=== PATIENT | female | born 1985 | race Caucasian/White ===

== ENCOUNTER 2016-07-16 02:00 | Inpatient (IN) | payer MEDICAID ==
[~2016-07-16] VITALS: Ht 157.5 cm; Wt 85.4 kg
[2016-07-16] VITALS (14 sets, daily range): BP systolic 114–181; BP diastolic 64–101; PULSE 71–95; RESP 17–19; Ht 157.5 cm; Wt 85.4 kg
[2016-07-16] MEDS ORDERED: PRENAT PO (02:15)
[2016-07-16] MEDS ORDERED: LACTATED RINGER'S 1,000 ML IV SCH (02:19)
--- NOTE | 2016-07-16 02:21 | TRIAGE ---
OB Triage Datetime Report Generated by CPN: 07/16/2016 02:21 Datetime: 07/16/2016 02:16 Time of Arrival: 07/16/2016 01:50 EGA: 38.4 Arrived By: Wheelchair Arrived From: Home Chief Complaint: w/ c/o ucs. No PNR available Movement: Present Contractions: Regular Time Contractions Began: 07/15/2016 23:30 Contractions: q3 Rupture of Membranes: Denies Vaginal Bleeding: Normal Show Vaginal Discharge: Present Recent Sexual Intercouse: Denies Abdominal Trauma: Not Applicable Patient Complaints: Contractions Time Provider Notified: 07/16/2016 02:15 Provider Notified: Dr Will Datetime: 07/16/2016 02:12 Membrane Status: Ruptured Datetime: 07/16/2016 02:06 Stage of : OB Triage Maternal Assessment Level of Consciousness: Fully Conscious DTR's/Clonus: DTRs 2+; No Clonus Headache: Denies Blurred Vision: No Nausea/Vomiting: Denies RUQ Epigastric Pain: Denies Facial Edema: None Labor Evaluation Frequency: placed Monitor Mode: External Heart Rate Monitor Mode: External US Comments: [id number] Pain Assessment Pain Scale: 8 Pain Presence: Intermittent Pain Type: Contraction Pain Location: Abdomen Vaginal Exam Dilatation (cms): 5.0 Effacement (%): 80 Station: -2 Exam By: Marv Casiano Vaginal Bleeding: Normal Show Cervix, Consistency: Soft Cervix, Position: Midposition Presentation 'A': Cephalic
[2016-07-16] MEDS ORDERED: BUTORPHANOL 2 MG INJ IV PRN (02:30)
[2016-07-16] MEDS ORDERED: MISOPROSTOL 200 MCG TAB PR PRN ×2 (02:30→06:30)
[2016-07-16] MEDS ORDERED: LIDOCAINE 1% (MPF) 30 ML INJ INJ PRN (02:30)
[2016-07-16] MEDS ORDERED: MAGNESIUM SULFATE 4 GM/100 ML 100 ML IVPB ONE (02:30)
[2016-07-16] MEDS ORDERED: IBUPROFEN 600 MG TAB PO PRN (02:30)
[2016-07-16] MEDS ORDERED: METHYLERGONOVINE 0.2 MG INJ IM PRN (02:30)
[2016-07-16] MEDS ORDERED: OXYTOCIN 30 UNITS/LR 500 ML IV PRN ×2 (02:30→06:30)
[2016-07-16] MEDS ORDERED: CARBOPROST 250 MCG INJ IM PRN ×2 (02:30→06:30)
[2016-07-16] MEDS ORDERED: AMPICILLIN 2 GM/NS (PMX) 100 ML IV ONE (02:30)
[2016-07-16] MEDS ORDERED: OXYTOCIN 30 UNITS/LR 500 ML IV SCH ×2 (02:30)
[2016-07-16 02:57] LABS: BASOPHILS % 0.4 % (0.0-2.0); EOSINOPHILS % 0.3 % (0.0-7.0); HEMATOCRIT 33.1 % (37.0-47.0); HEMOGLOBIN 11.1 g/dl (12.0-16.0); LYMPHOCYTES # 2.1 10^3/ul (0.8-2.9); LYMPHOCYTES % 19.3 % (15.0-51.0); MEAN CORPUSCULAR HEMOGLOBIN 27.8 pg (29.0-33.0); MEAN CORPUSCULAR HGB CONC 33.6 g/dl (32.0-37.0); MEAN CORPUSCULAR VOLUME 82.8 fl (82.0-101.0); MEAN PLATELET VOLUME 9.9 fl (7.4-10.4); MONOCYTE # 0.7 10^3/ul (0.3-0.9); MONOCYTES % 6.1 % (0.0-11.0); NEUTROPHIL # 8.2 10^3/ul (1.6-7.5); NEUTROPHILS % 73.9 % (39.0-77.0); PLATELET COUNT 224 10^3/UL (140-440); RED CELL DISTRIBUTION WIDTH 13.8 % (11.5-14.5); UNCORRECTED WBC 11.1 10^3/ul (4.8-10.8); WHITE BLOOD COUNT 11.1 10^3/ul (4.8-10.8)
[2016-07-16 02:58] LABS: CONDITION 1; INR 0.92; PROTIME 12.4 Sec (12.2-14.2)
[2016-07-16 02:59] LABS: PARTIAL THROMBOPLASTIN TIME 26.2 Sec (25.0-35.0)
[2016-07-16] MEDS ORDERED: LACTATED RINGER'S 1,000 ML IV PRN (03:00)
[2016-07-16 03:20] LABS: ALBUMIN 2.7 g/dl (3.3-4.9); CHLORIDE 106 mmol/L (97-110)
[2016-07-16 03:21] LABS: POTASSIUM 4.3 mmol/L (3.5-5.1); SODIUM 138 mmol/L (135-144)
[2016-07-16 03:23] LABS: ANION GAP 14 (8-16); ASPARTATE AMINO TRANSFERASE 23 IU/L (15-46); CARBON DIOXIDE 22 mmol/L (21-31); CREATININE 0.91 mg/dl (0.44-1.00)
[2016-07-16 03:24] LABS: ALANINE AMINOTRANSFERASE 21 IU/L (13-69); ALKALINE PHOSPHATASE 238 IU/L (42-121); BLOOD UREA NITROGEN 17 mg/dl (7-20); CALCIUM 8.7 mg/dl (8.4-10.2); GLUCOSE 85 mg/dl (70-220); TOTAL PROTEIN 5.7 g/dl (6.1-8.1)
[2016-07-16 03:28] LABS: BARBITURATES NEGATIVE (NEGATIVE); BENZODIAZEPINES NEGATIVE (NEGATIVE); CANNABINOIDS NEGATIVE (NEGATIVE); COCAINE NEGATIVE (NEGATIVE); OPIATES NEGATIVE (NEGATIVE)
[2016-07-16] MEDS: MAGNESIUM SULFATE 20 GM/500 ML 500 ML IV SCH ×2 (03:38→13:59)
--- NOTE | 2016-07-16 03:44 | RADRPT ---
PROCEDURE: US OB ESTIMATED WEIGHT. CLINICAL INDICATION: Pain. TECHNIQUE: Multiple sonographic images of the pelvis were obtained. The images were reviewed on a PACS workstation. COMPARISON: No pertinent prior examinations were submitted for comparison. FINDINGS: There is a single live intrauterine gestation. Cardiac activity is present with 136 beats per minut e. There is a vertex presentation. Measurements were made in order to determine age. The results are as follows: BPD =8.8 cm = 35 weeks 5 days HC =31.3 cm = 35 weeks 0 days AC =32 cm = 35 weeks 6 days FL =7 cm = 35 weeks 6 days Estimated gestational age of approximately 35 weeks 4 days. The estimated date of delivery is 08/16/2016. The EFW = 2760 g. 8% This examination was not performed for anatomy. The placenta is fundal and grade II in appearance. There is no evidence for an abruption or placenta previa. IMPRESSION: EFW = 2760 g. 8% RPTAT: HIKT .Alli Mireles MD, MD Date Time Electronically viewed and signed by .Alli Mireles MD, on 07/16/2016 03:44 .T/
--- NOTE | 2016-07-16 04:29 | HP ---
Date/Time of Note Date/Time of Note DATE: 07/16/16 TIME: 04:25 OB - History Hx of Present Chief Complaint: contractions Estimated Due Date: Jul 26, 2016 : 5 Para: 4 Care: Other ( records not available) Obstetrical Complications: None Medical Complications: None Past Family/Social History * Past Medical, Surgical, Family and Obstetric Histories reviewed from chart. Blood Type: Unknown Rubella: unknown RPR/VDRL: Unknown GBS Status: Unknown HBsAG: Unknown OB Admission Exam Vital Signs Vital Signs Vital Signs Date Time Temp Pulse Resp B/P Pulse Ox O2 Delivery O2 Flow Rate FiO2 07/16/16 02:16 97.8 83 19 181/99 Room Air Physical Exam HEENT: WNL Heart: Rhythm Normal Lungs: Clear Abdomen: WNL Extremities: Normal Cervical Dilatation: 5cm Effacement: 75% Station: -2 Membranes: Ruptured Amniotic Fluid: Clear Heart Rate: 150's Accelerations: Accelerations Present Decelerations: No Decelerations Varibility: Moderate Contractions on Admission: < 5 Minutes Apart Intensity: Moderate Last 72 hours Lab Results CBC & BMP 07/16/16 02:00 07/16/16 02:25 Liver Function Test 07/16/16 02:25 Alanine Aminotransferase (ALT/SGPT) 21 Albumin 2.7 L Alkaline Phosphatase 238 H Aspartate Amino Transf (AST/SGOT) 23 Direct Bilirubin 0.00 Total Protein 5.7 L OB Assessment/Plan Reason for admission: active labor Plan: Expectant Management SAVANNAH LARA MD Jul 16, 2016 04:29
--- NOTE | 2016-07-16 04:31 | LDN ---
Date/Time of Note Date/Time of Note DATE: 07/16/16 TIME: 04:29 Delivery Summary over intact perineum Placenta Delivered: Spontaneously Meconium: none Perineum intact?: Yes Anesthesia type: None Estimated blood loss: 400 Sponge & Needle done & correct: Yes All needle counts correct: Yes Any foreign bodies felt in the: No Problems: Infant Delivery Information Sex Infant Sex: male Apgars 1 Minute: 8 5 Minute: 9 Suctioning Nose & mouth suctioned at shonna: Yes Delee suction performed: No Umbilical Cord Umbilical cord with: 3 Vessels Cord presentations: no nuchal cord Cord Blood was obtained: Yes Mother & Baby Disposition Disposition Mom & Baby to Maternity; Good: Yes SAVANNAH LARA MD Jul 16, 2016 04:31
[2016-07-16] MEDS ORDERED: AMPICILLIN 1 GM/NS (PMX) 50 ML IV SCH (06:30)
[2016-07-16] MEDS ORDERED: BENZOCAINE 20% 56 ML SPRAY TOP PRN (06:30)
[2016-07-16] MEDS ORDERED: ACETAMINOPHEN 325 MG TAB PO PRN (06:30)
[2016-07-16] MEDS: IBUPROFEN 600 MG TAB PO SCH ×4 (06:30→23:44)
[2016-07-16] MEDS ORDERED: DIBUCAINE 1% 30 GM OINT PR PRN (06:30)
[2016-07-16] MEDS ORDERED: WITCH HAZEL/GLYCERIN PAD PR PRN (06:30)
[2016-07-16] MEDS ORDERED: INFLUENZA VIRUS VACCINE 0.5 ML SYG IM* ONE (07:30)
[2016-07-16] MEDS: SENNA/DOCUSATE NA (8.6MG/50MG) TAB PO SCH ×2 (09:08→21:19)
[2016-07-16] MEDS: LABETALOL 100 MG TAB PO SCH ×2 (10:30→21:00)
[2016-07-16] MEDS: ACETAMINOPHEN/CODEINE #3 TAB PO PRN ×2 (10:43→21:19)
[2016-07-16] MEDS: LACTATED RINGER'S 1,000 ML IV* SCH ×3 (10:44→23:43)
[2016-07-17] VITALS: BP 120/80; PULSE 76; RESP 19
[2016-07-17 04:10] VITALS: BP 109/55; PULSE 87; RESP 19
[2016-07-17] MEDS: IBUPROFEN 600 MG TAB PO SCH ×4 (05:51→23:34)
[2016-07-17] MEDS: LACTATED RINGER'S 1,000 ML IV* SCH ×3 (06:07→23:39)
[2016-07-17 08:15] VITALS: BP 103/70; PULSE 65; RESP 18
[2016-07-17] MEDS: LABETALOL 100 MG TAB PO SCH ×2 (09:00→21:00)
[2016-07-17] MEDS: SENNA/DOCUSATE NA (8.6MG/50MG) TAB PO SCH ×2 (09:00→21:38)
[2016-07-17 09:24] LABS: BASOPHIL # 0.1 10^3/ul (0.0-0.1); BASOPHILS % 0.4 % (0.0-2.0); EOSINOPHILS # 0.1 10^3/ul (0.0-0.5); EOSINOPHILS % 0.9 % (0.0-7.0); HEMATOCRIT 23.6 % (37.0-47.0); HEMOGLOBIN 7.9 g/dl (12.0-16.0); LYMPHOCYTES # 3.5 10^3/ul (0.8-2.9); LYMPHOCYTES % 26.2 % (15.0-51.0); MEAN CORPUSCULAR HEMOGLOBIN 28.5 pg (29.0-33.0); MEAN CORPUSCULAR HGB CONC 33.7 g/dl (32.0-37.0); MEAN CORPUSCULAR VOLUME 84.6 fl (82.0-101.0); MEAN PLATELET VOLUME 9.8 fl (7.4-10.4); MONOCYTE # 0.9 10^3/ul (0.3-0.9); MONOCYTES % 6.4 % (0.0-11.0); NEUTROPHIL # 8.8 10^3/ul (1.6-7.5); NEUTROPHILS % 66.1 % (39.0-77.0); PLATELET COUNT 215 10^3/UL (140-440); RED BLOOD COUNT 2.79 10^6/ul (4.20-5.40); RED CELL DISTRIBUTION WIDTH 14.3 % (11.5-14.5); UNCORRECTED WBC 13.3 10^3/ul (4.8-10.8); WHITE BLOOD COUNT 13.3 10^3/ul (4.8-10.8)
[2016-07-17 09:36] LABS: CONDITION 1; LH ANALYZER COMMENTS 1
[2016-07-17] MEDS ORDERED: INFLUENZA VIRUS VACCINE 0.5 ML SYG IM* ONE (10:00)
--- NOTE | 2016-07-17 10:49 | PN ---
Date/Time of Note Date/Time of Note DATE: 07/17/16 TIME: 10:48 OB Subjective Subjective Subjective day 1 Afebrile vital sign a stable abdomen soft uterus firm lochia normal extremity normal Laboratory Tests Test 07/16/16 15:27 07/17/16 08:41 Magnesium Level 7.2mg/dl Basophils # 0.110^3/ul Basophils % 0.4% Blood Morphology Comment Eosinophils # 0.110^3/ul Eosinophils % 0.9% Hematocrit 23.6% Hemoglobin 7.9g/dl Lymphocytes # 3.510^3/ul Lymphocytes % 26.2% Mean Corpuscular Hemoglobin 28.5pg Mean Corpuscular Hemoglobin Concent 33.7g/dl Mean Corpuscular Volume 84.6fl Mean Platelet Volume 9.8fl Monocytes # 0.910^3/ul Monocytes % 6.4% Neutrophils # 8.810^3/ul Neutrophils % 66.1% Nucleated Red Blood Cells # 0.010^3/ul Nucleated Red Blood Cells % 0.0/100WBC Platelet Count 27048^3/UL Red Blood Count 2.7910^6/ul Red Cell Distribution Width 14.3% White Blood Count 13.310^3/ul Current Medications Medications (Trade) Dose Ordered Sig/Pari Route PRN Reason Start Time Stop Time Status Last Admin Dose Admin Lactated Ringer's 1,000 ml @ 125 mls/hr Q8H IV 07/16/16 02:19 07/16/16 06:29 DC 07/16/16 02:42 Ampicillin 100 ml @ 100 mls/hr ONCE ONCE IV 07/16/16 02:30 07/16/16 03:29 DC 07/16/16 02:42 Ampicillin (Ampicillin 1 Gm/ NS (Pmx)) 50 ml @ 100 mls/hr Q4H IV 07/16/16 06:30 07/16/16 06:30 DC Butorphanol Tartrate (Stadol) 2 mg Q2H PRN IV PAIN 07/16/16 02:30 07/16/16 06:29 DC 07/16/16 03:31 Lidocaine 30 ml 30 ml ONCE PRN INJ EPISIOTOMY/TEARING 07/16/16 02:30 07/16/16 06:29 DC Oxytocin/Lactated Ringer's 500 ml @ 125 mls/hr ONCE -MAY REPEAT X1 IV 07/16/16 02:30 07/16/16 06:29 DC 07/16/16 04:31 Oxytocin/Lactated Ringer's 500 ml @ 125 mls/hr ONCE IV 07/16/16 02:30 07/16/16 06:30 DC 07/16/16 04:31 Ibuprofen 600 mg 600 mg ONCE PRN PO Mild Pain (Pain Score 1-3) 07/16/16 02:30 07/16/16 06:30 DC Lactated Ringer's 1,000 ml @ 2,000 mls/hr Q30M PRN IV PRE-EPIDURAL BOLUS 07/16/16 03:00 07/16/16 06:30 DC Oxytocin/Lactated Ringer's 500 ml @ 0 mls/hr ONCE PRN IV For Hemorrhage Management 07/16/16 02:30 07/16/16 06:31 DC Methylergonovine Maleate (Methergine) 0.2 mg ONCE PRN IM VAGINAL BLEEDING 07/16/16 02:30 07/16/16 06:31 DC Carboprost Tromethamine (Hemabate) 250 mcg ONCE PRN IM VAGINAL BLEEDING 07/16/16 02:30 07/16/16 06:31 DC Misoprostol 1000 mcg 1,000 mcg ONCE PRN IA VAGINAL BLEEDING 07/16/16 02:30 07/16/16 06:30 DC Magnesium Sulfate 100 ml @ 200 mls/hr ONCE ONCE IVPB 07/16/16 02:30 07/16/16 02:59 DC 07/16/16 03:08 Magnesium Sulfate 500 ml @ 50 mls/hr Q10H IV 07/16/16 03:00 07/16/16 17:37 DC 07/16/16 13:59 Lactated Ringer's (Lr) 1,000 ml @ 125 mls/hr Q8H IV* 07/16/16 06:27 07/16/16 10:44 Ibuprofen (Motrin) 600 mg Q6 PO 07/16/16 06:30 07/17/16 05:51 Acetaminophen (Tylenol Tab) 650 mg Q4H PRN PO PAIN LEVEL 1-5 07/16/16 06:30 Acetaminophen/ Codeine Phosphate (Tylenol No.3) 1 tab Q4H PRN PO PAIN LEVEL 1-5 07/16/16 06:30 07/16/16 21:19 Senna/Docusate Sodium (Senokot-S) 1 tab BID PO 07/16/16 09:00 07/16/16 21:19 Witch Barbie/ Glycerin (Tucks Pads) 1 pad BEDSIDE MEDICATION PRN IA HEMORRHOID/EPISIOTMY PAIN 07/16/16 06:30 07/16/16 06:49 Benzocaine (Dermoplast Castine) 1 spray BEDSIDE MEDICATION PRN TOP HEMORRHOID/EPISIOTMY PAIN 07/16/16 06:30 07/16/16 06:49 Dibucaine (Nupercainal) 1 applic BEDSIDE MEDICATION PRN IA HEMORRHOID/EPISIOTMY PAIN 07/16/16 06:30 07/16/16 06:49 Diphtheria/ Tetanus/Acell Pertussis 0.5 ml 0.5 ml ONCE ONCE IM* 07/18/16 09:00 07/18/16 09:01 Oxytocin/Lactated Ringer's 500 ml @ 0 mls/hr ONCE PRN IV For Hemorrhage Management 07/16/16 06:30 Carboprost Tromethamine (Hemabate) 250 mcg ONCE PRN IM VAGINAL BLEEDING 07/16/16 06:30 Misoprostol (Cytotec) 1,000 mcg ONCE PRN IA VAGINAL BLEEDING 07/16/16 06:30 Influenza Virus Vaccine (Fluzone) 0.5 ml ONCE ONCE IM* 07/16/16 07:30 07/16/16 07:31 MELLO Labetalol HCl (Normodyne) 100 mg BID PO 07/16/16 10:30 Influenza Virus Vaccine (Fluzone) 0.5 ml ONCE ONCE IM* 07/17/16 10:00 07/17/16 10:01 PAVEL DE GUZMAN MD Jul 17, 2016 10:49
[2016-07-17 12:00] VITALS: BP 112/68; PULSE 70; RESP 18
[2016-07-17 16:00] VITALS: BP 110/70; PULSE 100; RESP 18
[2016-07-17 20:04] VITALS: BP 120/85; PULSE 96; RESP 18
[2016-07-18 03:30] VITALS: BP 133/84; PULSE 88; RESP 19
[2016-07-18] MEDS: IBUPROFEN 600 MG TAB PO SCH ×3 (05:40→18:09)
[2016-07-18 08:45] VITALS: BP 130/76; PULSE 84; RESP 20
[2016-07-18] MEDS ORDERED: DIPHTH/TET/ACEL PERTUSS (ADULT) 0.5 ML VIAL IM* ONE (09:00)
[2016-07-18] MEDS: LABETALOL 100 MG TAB PO SCH (09:00)
[2016-07-18] MEDS: ACETAMINOPHEN/CODEINE #3 TAB PO PRN (11:34)
[2016-07-18] MEDS: SENNA/DOCUSATE NA (8.6MG/50MG) TAB PO SCH (11:34)
[2016-07-18] MEDS: LACTATED RINGER'S 1,000 ML IV* SCH (14:27)
[2016-07-18 16:22] VITALS: BP 131/81; PULSE 84; RESP 18
--- NOTE | 2016-07-18 18:22 | DS ---
Date/Time of Note Date/Time of Note DATE: 07/18/16 TIME: 18:20 Obstetrical Discharge Record Final Diagnosis Final Diagnosis: Term delivered Vaginal Delivery Obstetrical Delivery: Spontaneous Condition on Discharge Physical Assessment Last Vitals: day 2 Vital sign is stable afebrile abdomen soft uterus firm lochia normal extremity normal patient discharged home with follow-up instructions to be seen at the clinic in 2 weeks Voiding: Yes Breast: Filling Fundus: Firm Calf Tenderness: No Patient Condition: Good PAVEL HILL MD Jul 18, 2016 18:22
[2016-07-19 12:07] LABS: RUBELLA ANTIBODY - IGG 2.09
== END 2016-07-18 20:22 | disposition home or self-care (01) | DRG 775 ==
LOC: OBT 02:00 → L-D 02:00 → OBT 02:15 → L-D 02:15 → PP1 06:23
PROVIDERS: ADMIT Obstetrics & Gynecology; ATTEND Obstetrics & Gynecology
PROC: 10E0XZZ Delivery of Products of Conception, External Approach (ICD-10-PCS; principal; 2016-07-16)
PROC: 3E00X4Z Introduction of Serum, Toxoid and Vaccine into Skin and Mucous Membranes, External Approach (ICD-10-PCS; 2016-07-17)
DX: O80 Encounter for full-term uncomplicated delivery (principal); Z23 Encounter for immunization; Z3A.38 38 weeks gestation of pregnancy; Z37.0 Single live birth
CPT/HCPCS: 36415; 76815; 80053; 80307; 83735; 84560; 85025; 85610; 85730; 86592; 86762; 86900; 86901; 87340; 88307; 90686; 90715; 96360; 96365; 96374; G0463; J0290; J2590; J3475; J7120